=== PATIENT | male | born 1945 | race Caucasian/White ===

== ENCOUNTER 2016-08-26 13:39 | Outpatient (CLI) | payer MEDICARE, BC | END 2016-08-26 13:40 | disposition home or self-care (01) | LOC: LAB 13:39 | PROVIDERS: ATTEND Radiology Radiation Oncology | DX: C61 Malignant neoplasm of prostate (principal) | CPT/HCPCS: 36415; 84153 ==

== ENCOUNTER 2016-09-06 10:54 | Outpatient (CLI) | payer MEDICARE, BC ==
[2016-09-06 18:39] LABS: BASOPHILS % (AUTO) 0.3 %; EOSINOPHILS # (AUTO) 0.1 10^3/uL (0.0-0.7); EOSINOPHILS % (AUTO) 1.6 %; HCT - HEMATOCRIT 42.8 % (42.0-52.0); HGB - HEMOGLOBIN 14.1 g/dL (14.0-18.0); LYMPHOCYTES % (AUTO) 17.5 %; MEAN CORPUSCULAR HEMOGLOBIN 30.9 pg (27.0-31.0); MEAN CORPUSCULAR HGB CONC 33.1 g/dL (32.0-36.0); MEAN CORPUSCULAR VOLUME 93.5 fL (80.0-94.0); MEAN PLATELET VOLUME 8.4 fL (7.4-11.4); MONOCYTES # (AUTO) 0.5 10^3/uL (0.0-1.0); MONOCYTES % (AUTO) 7.8 %; NEUTROPHILS # (AUTO) 4.3 10^3/uL (1.5-6.6); NEUTROPHILS % (AUTO) 72.8 %; NUCLEATED RED BLOOD CELLS AUTO 0.1 /100WBC; RED BLOOD COUNT 4.58 10^6/uL (4.70-6.10); RED CELL DISTRIBUTION WIDTH 13.7 % (12.0-15.0)
== END 2016-09-06 10:55 | disposition home or self-care (01) ==
LOC: LAB.F 10:54
PROVIDERS: ATTEND Radiology Radiation Oncology
DX: C61 Malignant neoplasm of prostate (principal); R53.83 Other fatigue
CPT/HCPCS: 36415; 84403; 84443; 85025

== ENCOUNTER 2016-12-23 15:32 | Outpatient (CLI) | payer MEDICARE, BC ==
--- NOTE | 2016-12-23 17:13 | CT Report ---
CT BRAIN WITHOUT CONTRAST: 12/23/2016 CLINICAL INDICATION: Vertigo, blurred vision, falling. TECHNIQUE: Axial CT images of the brain were obtained without contrast. No previous CT is available for comparison. FINDINGS: The ventricles and sulci demonstrate moderate symmetric enlargement, compatible with atrop hy. Mild chronic ischemic changes are seen in the periventricular white matter structures. There is no evidence of acute hemorrhage, mass effect, or midline shift. The basilar cisterns are patent. T he visualized orbital contents and paranasal sinuses are unremarkable. IMPRESSION: ATROPHY AND CHRONIC ISCHEMIC CHANGES. NO EVIDENCE OF ACUTE HEMORRHAGE OR MASS EFFECT. In accordance with CT protocol optimization, one or more of the following dose reduction techniques w ere utilized for this exam: automated exposure control, adjustment of mA and/or KV based on patient size, or use of iterative reconstructive technique. JOB #: [id number] EXT JOB #:[id number]
--- NOTE | 2016-12-24 16:37 | Ultrasound Report ---
EXAM: CAROTID DOPPLER ULTRASOUND EXAM DATE: 12/23/2016 05:21 PM. CLINICAL HISTORY: Vertigo, blurred vision, fall. COMPARISON: None. TECHNIQUE: Real-time sonographic vascular imaging was performed by the nurseryman assistant through the caroti d arterial system with a linear transducer utilizing color-flow, Doppler flow and spectral analysis. Multiple sales representative graphic art static images were saved for review. FINDINGS: Right: There is mild plaquing in the right carotid bifurcation, without evidence of a focal hemodynam ically significant stenosis. Left: There is moderate plaquing in the left carotid bifurcation, without evidence of a focal, hemody namically significant carotid stenosis. The vertebral arteries demonstrate antegrade flow bilaterally. RIGHT: RCCA Prox: PSV 135 cm/sec. RCCA Dist: PSV 102 cm/sec, EDV 15 cm/sec. RECA: PSV 90 cm/sec. R Bulb: PSV 66 cm/sec, EDV 10 cm/sec, ICA/CCA ratio 0.64. SANDRA Prox: PSV 83 cm/sec, EDV 8 cm/sec, ICA/CCA ratio 0.81. SANDRA Mid: PSV 65 cm/sec, EDV 14 cm/sec, ICA/CCA ratio 0.63. SANDRA Dist: PSV 37 cm/sec, EDV 11 cm/sec, ICA/CCA ratio 0.36. RVA: PSV 42 cm/sec. RVA flow direction: Antegrade. LEFT: LCCA Prox: PSV 80 cm/sec. LCCA Dist: PSV 56 cm/sec, EDV 12 cm/sec. LECA: PSV 390 cm/sec. L Bulb: PSV 75 cm/sec, EDV 17 cm/sec, ICA/CCA ratio 1.3. LICA Prox: PSV 60 cm/sec, EDV 16 cm/sec, ICA/CCA ratio 1.0. LICA Mid: PSV 69 cm/sec, EDV 22 cm/sec, ICA/CCA ratio 1.2. LICA Dist: PSV 73 cm/sec, EDV 26 cm/sec, ICA/CCA ratio 1.3. LVA: PSV 60 cm/sec. LVA flow direction: Antegrade. Other: None. IMPRESSION: No hemodynamically significant stenoses. Validated velocity measurements with angiographic measurements and velocity criteria are extrapolated from diameter data as defined by the Society of Radiologists in Ultrasound Consensus Conference Radi ology 2003; 229;340-346. [facility] Referring Provider Line: [phone] SITE ID: [id number]
== END 2016-12-23 15:33 | disposition home or self-care (01) ==
LOC: DI 15:32
PROVIDERS: ATTEND Nurse Practitioner Family
DX: G31.9 Degenerative disease of nervous system, unspecified (principal); I67.82 Cerebral ischemia
CPT/HCPCS: 70450; 93880

== ENCOUNTER 2017-02-22 10:11 | Outpatient (CLI) | payer MEDICARE, BC | END 2017-02-22 10:12 | disposition home or self-care (01) | LOC: LAB.F 10:11 | PROVIDERS: ATTEND Radiology Radiation Oncology | DX: C61 Malignant neoplasm of prostate (principal) | CPT/HCPCS: 36415; 84153 ==

== ENCOUNTER 2017-05-30 15:08 | Outpatient (CLI) | payer MEDICARE, BC ==
--- NOTE | 2017-05-31 10:11 | MRI Report ---
EXAM: MRI BRAIN WITHOUT CONTRAST EXAM DATE: 05/30/2017 04:17 PM. CLINICAL HISTORY: NEW ONSET COGNITIVE DIFFICULTIES. COMPARISON: None. TECHNIQUE: Multiplanar, multisequence T1-weighted and fluid-sensitive MR sequences of the brain were performed. Sequences optimized for routine evaluation. Patient had difficulty lying still for the exa m and fast MR series performed. Other: None. IV Contrast: None. FINDINGS: Brain Volume: Normal for age. Parenchyma/Dura: No mass, acute infarct or hemorrhage. No white matter lesions identified. Ventricles/Cisterns: There is mild enlargement of lateral and third ventricles. Lynch ratio 0.33. The re is similar prominence of sulci. There is no mass effect. No midline shift. No abnormal extra-axial fluid collection or hemorrhage. Orbits: Symmetric and unremarkable. Sella Turcica: The pituitary gland, cavernous sinuses, suprasellar cistern and optic chiasm are unrem arkable. IAC: Symmetric and unremarkable. Vasculature: Normal signal flow void is seen in the major arterial structures at the skull base. Sinuses: No acute appearing sinus disease. Bones: No focal pathologic appearing marrow signal changes. Other: None. IMPRESSION: 1. No evidence of mass, infarct, or other acute abnormality. 2. Mild diffuse volume loss. [facility] Referring Provider Line: [phone] SITE ID: [id number]
== END 2017-05-30 15:09 | disposition home or self-care (01) ==
LOC: DI 15:08
PROVIDERS: ATTEND Family Medicine
DX: F09 Unspecified mental disorder due to known physiological condition (principal)
CPT/HCPCS: 70551

== ENCOUNTER 2017-08-23 14:19 | Outpatient (CLI) | payer MEDICARE, OTHER | END 2017-08-23 14:20 | disposition home or self-care (01) | LOC: LAB.F 14:19 | PROVIDERS: ATTEND Radiology Radiation Oncology | DX: C61 Malignant neoplasm of prostate (principal) | CPT/HCPCS: 36415; 84153 ==